=== PATIENT | female | born 1945 | race Asian ===

== ENCOUNTER → 2022-08-17 12:43 | Outpatient (BNVA) | payer MEDICAID, SELFPAY | PROVIDERS: PCP Internal Medicine; Visit Provider Internal Medicine Cardiovascular Disease | DX: I48.0 Paroxysmal atrial fibrillation (principal); I50.30 Unspecified diastolic (congestive) heart failure | CPT/HCPCS: 93005; 99202 ==

== ENCOUNTER → 2022-08-19 12:59 | Outpatient (BNVA) | payer MEDICAID, SELFPAY | PROVIDERS: PCP Internal Medicine; Visit Provider Internal Medicine Cardiovascular Disease | DX: I48.0 Paroxysmal atrial fibrillation (principal) | CPT/HCPCS: 93005 ==

== ENCOUNTER 2023-06-14 11:09 | Outpatient (AMB) | payer MEDICAID, SELFPAY ==
--- NOTE | 2023-06-14 11:19 | A.OFFVIS_ITS ---
Intake Vital Signs 06/14/23 11:20 Height 5 ft 3 in Weight 154 lb 5.177 oz BMI 27.3 BP 112/72 Blood Pressure Location Lt brachial Position Sitting Pulse 61 Intake Visit Reasons: follow-up with ekg Intake Note: Follow-up with ekg feeling good Crude Oil Treater Required: No Air Tube Releaser: Air Tube Releaser Present Accompanied by: Daughter Allergies No Known Allergies Allergy (Verified 08/17/22 13:16) Medication List - Last Reconciled 06/14/23 by Peter Paniagua MD amiodarone 100 mg PO DAILY amlodipine 5 mg PO DAILY apixaban (Eliquis) 5 mg PO BID metformin 500 mg PO BID metoprolol tartrate 50 mg PO BID olmesartan-hydrochlorothiazide 40-25 mg 1 tab PO DAILY HPI HPI Comments History of Present Illness Details Prof. Ortez comes for follow-up after a long gap. Since I last saw her she had a lot of complications related to infection and was started on heavy duty antibiotics and subsequently developed GI symptoms and JOY. After that she had traveled to [facility] and was living in [facility] for 6 months. She had some workup done there which suggested normal LV systolic function with mild LVH with biatrial enlargement and at least grade 2 diastolic dysfunction. There was concern for some regional wall motion abnormality I will suggest a coronary CTA, this is not performed as yet. She has been getting intermittent episodes of atrial fibrillation with rapid heart rate and she had symptoms of severe back p ain associated with it. She since then over the last few weeks has increase amiodarone to daily amiodarone use and since then has not had any recurrent atrial fibrillation with rapid heart rate response but she had severe back pain again and that time she thought the rhythm at changed. Do not have an EKG tracing. She has been taking all her medications. No major bleeding issues or neurologic events. Blood work done in [facility] have been within reasonable limits with normalized renal functions. She is noted to have hyperlipidemia, she has currently not on statin therapy. She denies any exertional back pain or chest pain. Has not had any heart failure symptoms of orthopnea, PND, leg edema. Does get a nocturnal dry cough. She has not had any heart failure related admissions. [facility] Medical History (Updated 06/14/23 @ 12:23 by Peter Paniagua MD) Abnormal nuclear stress test Diabetes mellitus HTN (hypertension) (HFpEF) heart failure with preserved ejection fraction Hypertensive heart disease Paroxysmal atrial fibrillation Family History Father No problems noted. Mother No problems noted. Social History Patient Tobacco Use Status: Never used Tobacco Review of Systems Const Denies chills, Denies fatigue, Denies fever(s), Denies frequent falls, Denies weakness, Denies weight gain and Denies weight loss ENT Denies dizziness Card Denies chest pain, Denies leg edema, Denies lightheadedness, Denies palpitations, Denies dyspnea, Denies dyspnea on exertion, Denies orthopnea and Denies other (loss of consciousness) Resp Denies cough, Denies dyspnea and Denies dyspnea on exertion GI Denies hematochezia and Denies change in stool character Musc Denies abnormal gait, Denies muscle weakness, Denies numbness, Denies radiating pain into limb and Denies tingling Neuro Denies Abnormal speech present, Denies abnormal gait, Denies dizziness, Denies frequent falls, Denies numbness, Denies tingling and Denies weakness Endo Denies fatigue and Denies palpitations Physical Exam Vital Signs: Last Vital Signs Pulse 61 06/14/23 11:20 BP 112/72 06/14/23 11:20 BMI result Body Mass Index 27.3 Const General: cooperative, comfortable, well developed, alert and awake Nutritional Appearance: overweight Orientation/consciousness: patient oriented x3 Limitations: no limitations HEENT Head: Yes normocephalic and Yes atraumatic Neck Neck: Yes trachea midline, Yes supple and Yes no JVD Resp Effort & Inspection: normal respiratory effort Auscultation: clear to auscultation bilaterally Cardio Jugular venous distension: no JVD Palpation: normal PMI Rate: regular rate Rhythm: regular rhythm Heart sounds: S1 normal heart sound present, S2 normal heart sound present, no click, no gallops, no murmurs and no rubs GI Auscultation: normal bowel sounds Skin General skin exam: no rashes or lesions noted Neuro General: patient oriented x3 and no focal motor deficits Speech: No Abnormal speech present Extrem General: Yes no clubbing, cyanosis or edema Psych Appearance: grossly normal Office Procedures EKG Details: EKG shows normal sinus rhythm with sinus arrhythmia [id number], Complete Assessment & Plan Assessment & Plan (1) (HFpEF) heart failure with preserved ejection fraction: Code(s): I50.30 - Unspecified diastolic (congestive) heart failure Plan: Heart failure preserved ejection fraction, clinically euvolemic and well compensated. Currently doing very well from this perspective. She understands management of heart failure very well. Advised daily weight monitoring avoidance of salt loading. Taking of loop diuretics if she has weight gain or symptoms of heart failure was discussed and she understands well. She is done very well with rhythm control approach and strongly recommend to continue amiodarone to maintain rhythm which has helped her significantly. Heart failure most likely related to hypertensive heart disease with at least grade 2 diastolic dysfunction and recurrent atrial fibrillation. Continue aggressive management of blood pressure. Advised to take all her medications regularly and maintain a blood pressure log at home. Going to start on Jardiance 10 mg daily which has shown to reduce recurrent hospitalization related to heart failure improved prognosis. Follow-up blood work in near future. She also has high likelihood of underlying obstructive coronary disease and this needs to be ruled out as this could affect her prognosis and also heart failure syndrome. Encouraged to increase activity level. Also evaluate for was obstructive sleep apnea. (2) Paroxysmal atrial fibrillation: Code(s): I48.0 - Paroxysmal atrial fibrillation Plan: Paroxysmal atrial fibrillation which has been difficult control. Most likely related hypertensive heart disease with biatrial chamber enlargement. She is done well with amiodarone therapy. She is worried about long-term amiodarone toxicity. I concur with her and we discussed about potential ways of coming off amiodarone and I think she will need ablation therapy to reduce risk of recurrent atrial fibrillation but will need an alternative antiarrhythmic at that point in time. Limited choices of antiarrhythmic drug therapy if she is significant coronary artery disease and therefore coronary CTA is very essential. Continue full oral anticoagulation, currently on Eliquis 5 mg b.i.d.. At least quarterly renal function test should be pursued. Avoidance of stimulants was discussed. Continue aggressive control blood pressure. Workup for sleep apnea needs to be pursued. (3) Abnormal nuclear stress test: Code(s): R94.39 - Abnormal result of other cardiovascular function study Plan: Abnormal stress test and likelihood of LAD territory ischemia is high. Recommend coronary CTA to further evaluate for significant coronary artery disease. Potential outcomes were discussed. If she has nonobstructive disease then continue aggressive medical management will be pursued. She should be on statin therapy. Have taken the liberty start on Lipitor 20 mg daily and follow- up lipid panel in 6 weeks time to target goal LDL less than 70 mg/dL. She is currently on full oral anticoagulation with therefore avoid low-dose aspirin therapy to reduce bleeding risk. Continue aggressive management diabetes. Will follow up in the clinic in 6 weeks time, sooner p.r.n.. Thank you for allowing me to partake in her care. Greater than 40 minutes was spent in managing his complex care Orders: Orders CT Cardiac Coronary Angio 1 Week I50.30 - Unspecified diastolic (congestive) heart failure Basic Metabolic Panel Today I50.30 - Unspecified diastolic (congestive) heart failure Magnesium Today I50.30 - Unspecified diastolic (congestive) heart failure TSH reflex Free T4 Today I50.30 - Unspecified diastolic (congestive) heart failure Liver Panel Today I50.30 - Unspecified diastolic (congestive) heart failure RT home sleep study Today I50.30 - Unspecified diastolic (congestive) heart failure, R40.0 - Somnolence B Type Natriuretic Peptide Today I50.30 - Unspecified diastolic (congestive) heart failure Complete Blood Count no Diff Today I50.30 - Unspecified diastolic (congestive) heart failure Medications: New empagliflozin (Jardiance) 10 mg PO DAILY 30 tabs 5RF I50.30 - Unspecified diastolic (congestive) heart failure atorvastatin (Lipitor) 20 mg PO DAILY 30 tabs 5RF I50.30 - Unspecified diastolic (congestive) heart failure Coding Level of Care Code Est Pt Level 5 (49525) Diagnoses (HFpEF) heart failure with preserved ejection fraction I50.30 Paroxysmal atrial fibrillation I48.0 Abnormal nuclear stress test R94.39 CPT Codes EKG - CPT: 00974-[id number], Complete ([id number])
[2023-06-14 11:20] VITALS: BP 112/72; PULSE 61; BMI 27.3
== END 2023-06-14 12:19 | disposition home or self-care (01) ==
PROVIDERS: PCP Internal Medicine; Visit Provider Internal Medicine Cardiovascular Disease
DX: I50.30 Unspecified diastolic (congestive) heart failure (principal); I48.0 Paroxysmal atrial fibrillation; R94.39 Abnormal result of other cardiovascular function study
CPT/HCPCS: 93010; 99215

== ENCOUNTER → 2023-06-14 11:09 | Outpatient (BNVA) | payer MEDICAID, SELFPAY | PROVIDERS: PCP Internal Medicine; Visit Provider Internal Medicine Cardiovascular Disease | DX: I50.30 Unspecified diastolic (congestive) heart failure (principal); I48.0 Paroxysmal atrial fibrillation; R94.39 Abnormal result of other cardiovascular function study | CPT/HCPCS: 93005; 99212 ==

== ENCOUNTER → 2023-06-26 14:14 | Outpatient (REF) | payer MEDICAID, SELFPAY | LOC: HO.SL 14:14 | PROVIDERS: PCP Internal Medicine; Visit Provider Internal Medicine Cardiovascular Disease | DX: G47.33 Obstructive sleep apnea (adult) (pediatric) (principal); R40.0 Somnolence; I50.30 Unspecified diastolic (congestive) heart failure | CPT/HCPCS: 95806 ==

== ENCOUNTER → 2023-06-26 14:21 | Outpatient (BNV) | payer MEDICAID, SELFPAY | PROVIDERS: PCP Internal Medicine; Visit Provider Psychiatry & Neurology Neurology | DX: G47.33 Obstructive sleep apnea (adult) (pediatric) (principal) | CPT/HCPCS: 95806 ==

== ENCOUNTER → 2023-07-07 08:08 | Outpatient (REF) | payer MEDICAID, SELFPAY ==
--- NOTE | 2023-07-07 08:10 | HM_ITS ---
* Total monitoring time 2 days. * Underlying rhythm is sinus with an average rate of 66/Min. * Frequent supraventricular ectopy with a burden of about 6%. * No significant pauses or AV blocks. * No patient markers or diary events. MTDD
== END ==
LOC: HO.CARD 08:08
PROVIDERS: PCP Internal Medicine; Visit Provider Internal Medicine Cardiovascular Disease
DX: I48.0 Paroxysmal atrial fibrillation (principal)
CPT/HCPCS: 93225

== ENCOUNTER → 2023-07-07 08:10 | Outpatient (BNV) | payer MEDICAID, SELFPAY | PROVIDERS: PCP Internal Medicine; Visit Provider Internal Medicine | DX: I47.10 Supraventricular tachycardia, unspecified (principal) | CPT/HCPCS: 93227 ==

== ENCOUNTER 2023-11-29 12:49 | Outpatient (AMB) | payer MEDICAID, SELFPAY ==
[2023-11-29 13:00] VITALS: BP 118/68; PULSE 52; BMI 26.5
--- NOTE | 2023-11-29 13:00 | MHC.OFFVIS ---
Vital Signs 11/29/23 13:00 Height 5 ft 4 in Weight 154 lb 5.177 oz BMI 26.5 BP 118/68 Blood Pressure Location Lt brachial Position Sitting Pulse 52 Intake Visit Reasons: per Dr. Paniagua Intake Note: Follow-up dx afib feeling good today can have heart racing at times Tracer Bullet Section Supervisor: Tracer Bullet Section Supervisor Present Accompanied by: Daughter Allergies No Known Allergies Allergy (Verified 08/17/22 13:16) Medication List - Last Reconciled 11/29/23 by Peter Paniagua MD amiodarone 100 mg PO DAILY amlodipine 5 mg PO DAILY apixaban (Eliquis) 5 mg PO BID atorvastatin 20 mg PO DAILY metformin 500 mg PO BID metoprolol tartrate 50 mg PO BID olmesartan-hydrochlorothiazide 40-25 mg 1 tab PO DAILY HPI Comments Details: Neelima comes for follow-up. Last Monday she had a brief episode of atrial fibrillation. She detected on a home monitor EKG. Subsequently Monday night she had recurrent episodes of atrial fibrillation if she felt on well backache and notice that heart was in AFib. He remained in atrial fibrillation throughout the day yesterday, 1st episode of persistent atrial fibrillation in many months. She then this morning had another EKG which showed atrial fibrillation, we increase the amiodarone yesterday after discussion with the daughter to 200 mg b.i.d. she took 2 doses since last evening and have reduced her metoprolol to 25 mg b.i.d.. She has been taking Eliquis regularly. Her blood pressures been very well controlled. As you aware she had a coronary CTA which had shown nonobstructive disease. She denies any heart failure symptoms at this point time. Denies any orthopnea, PND, leg edema. No weight gain. No lightheadedness, syncope. A blood pressure says remains 110 systolic. Over the last 20 days she has also not had CPAP use because of her cataract surgery. [facility] Medical History (Updated 11/29/23 @ 13:39 by Peter Paniagua MD) Abnormal nuclear stress test Diabetes mellitus HTN (hypertension) (HFpEF) heart failure with preserved ejection fraction Hypertensive heart disease Paroxysmal atrial fibrillation Family History Father No problems noted. Mother No problems noted. Social History Patient Tobacco Use Status: Never used Tobacco Review of Systems Const Denies chills, Denies fatigue, Denies fever(s), Denies frequent falls, Denies weakness, Denies weight gain and Denies weight loss ENT Denies dizziness Card Denies chest pain, Denies leg edema, Denies lightheadedness, Denies palpitations, Denies dyspnea, Denies dyspnea on exertion, Denies orthopnea and Denies other (loss of consciousness) Resp Denies cough, Denies dyspnea and Denies dyspnea on exertion GI Denies hematochezia and Denies change in stool character Musc Denies abnormal gait, Denies muscle weakness, Denies numbness, Denies radiating pain into limb and Denies tingling Neuro Denies Abnormal speech present, Denies abnormal gait, Denies dizziness, Denies frequent falls, Denies numbness, Denies tingling and Denies weakness Endo Denies fatigue and Denies palpitations Physical Exam Vital Signs: Last Vital Signs Pulse 52 11/29/23 13:00 BP 118/68 11/29/23 13:00 BMI result Body Mass Index 26.5 Const General: cooperative, comfortable, well developed, alert and awake Nutritional Appearance: overweight Orientation/consciousness: patient oriented x3 Limitations: no limitations HEENT Head: Yes normocephalic and Yes atraumatic Neck Neck: Yes trachea midline, Yes supple and Yes no JVD Resp Effort & Inspection: normal respiratory effort Auscultation: clear to auscultation bilaterally Cardio Jugular venous distension: no JVD Palpation: normal PMI Rate: regular rate and bradycardic Rhythm: regular rhythm Heart sounds: S1 normal heart sound present, S2 normal heart sound present, no click, no gallops, no murmurs and no rubs GI Auscultation: normal bowel sounds Skin General skin exam: no rashes or lesions noted Neuro General: patient oriented x3 and no focal motor deficits Speech: No Abnormal speech present Extrem General: Yes no clubbing, cyanosis or edema Psych Appearance: grossly normal Office Procedures EKG Details: EKG shows sinus bradycardia with PACs at 52 beats per minute with mild QT prolongation [id number], Complete Assessment & Plan Assessment & Plan (1) Paroxysmal atrial fibrillation: Code(s): I48.0 - Paroxysmal atrial fibrillation Category: Medical Plan: Paroxysmal atrial fibrillation, with recent increased burden. This is most likely due to either inappropriate amiodarone dosing iron or not using her CPAP. She has done extremely well with rhythm control approach will continue pursue rhythm control approach. For now she is coming to the office in sinus rhythm after increasing her amiodarone dose. I have suggested as she is traveling to [facility] to load herself with a small loaded to 100 mg b.i.d. for 2 weeks followed by 200 mg daily till she returns back from [facility] in 6 months. At which point time will consider further treatment options including ablation therapy. The role of ablation therapy was discussed in details again. Continue CPAP therapy. Continue aggressive blood pressure control. Continue full oral anticoagulation, currently with Eliquis. (2) (HFpEF) heart failure with preserved ejection fraction: Code(s): I50.30 - Unspecified diastolic (congestive) heart failure Category: Medical Plan: Heart failure preserved ejection fraction, clinically euvolemic and well compensated. She is currently not on any diuretic regimen. She has done well with rhythm control approach. A blood pressure is also well optimized. Advised to monitor her blood pressure regular. Daily weight monitoring avoidance of salt loading was discussed. Continue CPAP therapy. Advised to call me with any worsening symptoms. (3) CAD (coronary artery disease): Code(s): I25.10 - Atherosclerotic heart disease of [place] coronary artery without angina pectoris Category: Medical Plan: Nonobstructive CAD by coronary CTA. Encouraged to continue aggressive medical therapy. Continue statin therapy. Continue aggressive diabetes management goal hemoglobin A1c less than 7%. Continue aggressive blood pressure control as well. Currently on full oral anticoagulation Eliquis and therefore would avoid aspirin therapy. Follow up in the clinic in 6 months time, sooner p.r.n.. Will obtain echocardiogram on a returned. Thank you for allowing me to partake in his care Orders: Orders CA echo transthoracic complete 6 Months I50.30 - Unspecified diastolic (congestive) heart failure Medications: Changed From amiodarone 100 mg PO DAILY To amiodarone 200 mg PO BID From metoprolol tartrate 50 mg PO BID To metoprolol tartrate 25 mg PO BID Coding Level of Care Code Est Pt Level 4 (90008) Diagnoses Paroxysmal atrial fibrillation I48.0 (HFpEF) heart failure with preserved ejection fraction I50.30 CAD (coronary artery disease) I25.10 CPT Codes EKG - CPT: 07068-[id number], Complete ([id number])
== END 2023-11-29 13:54 | disposition home or self-care (01) ==
PROVIDERS: PCP Internal Medicine; Visit Provider Internal Medicine Cardiovascular Disease
DX: I48.0 Paroxysmal atrial fibrillation (principal); I50.30 Unspecified diastolic (congestive) heart failure; I25.10 Atherosclerotic heart disease of native coronary artery without angina pectoris
CPT/HCPCS: 93010; 99214

== ENCOUNTER → 2023-11-29 12:49 | Outpatient (BNVA) | payer MEDICAID, SELFPAY | PROVIDERS: PCP Internal Medicine; Visit Provider Internal Medicine Cardiovascular Disease | DX: I48.0 Paroxysmal atrial fibrillation (principal); I50.30 Unspecified diastolic (congestive) heart failure; I25.10 Atherosclerotic heart disease of native coronary artery without angina pectoris; R00.1 Bradycardia, unspecified | CPT/HCPCS: 93005; 99212 ==

== ENCOUNTER 2024-06-27 13:19 | Outpatient (AMB) | payer MEDICAID, SELFPAY ==
[2024-06-27 13:20] VITALS: BP 120/78; PULSE 64; BMI 26.9
--- NOTE | 2024-06-27 13:20 | MHC.OFFVIS ---
Vital Signs 06/27/24 13:20 Height 5 ft 4 in Weight 156 lb 8.451 oz BMI 26.9 BP 120/78 Blood Pressure Location Lt brachial Pulse 64 Intake Visit Reasons: 6 mth f/up Allergies No Known Allergies Allergy (Verified 08/17/22 13:16) Medication List - Last Reconciled 06/27/24 by Peter Paniagua MD amiodarone 200 mg PO ONCE amlodipine 5 mg PO DAILY apixaban (Eliquis) 5 mg PO BID metformin 500 mg PO BID metoprolol tartrate 25 mg PO BID olmesartan-hydrochlorothiazide 40-25 mg 1 tab PO DAILY rosuvastatin 20 mg PO DAILY HPI Comments Details: Neelima comes for follow-up. She has been doing extremely well. She recently returned from [place]. In the last 6 months she had only had 1 episode of 10 minutes of atrial fibrillation. Overall she is doing well. She was using a CPAP regularly. She says she can not sleep without it. She uses for 6-7 hours a night. She has not had any heart failure symptoms. Denies any orthopnea, PND, leg edema which has improved significantly. Currently not on diuretic regimen. Blood pressure is very well controlled at systolic 110-120 range. No bleeding issues or neurologic events. Complains of a dry cough ever since she had a pneumonia while in [place]. She has not had any wheezing or productive phlegm. Denies exertional chest pain. [facility] Medical History Abnormal nuclear stress test Diabetes mellitus HTN (hypertension) (HFpEF) heart failure with preserved ejection fraction Hypertensive heart disease Paroxysmal atrial fibrillation Family History Father No problems noted. Mother No problems noted. Social History Patient Tobacco Use Status: Never used Tobacco Review of Systems Const Denies chills, Denies fatigue, Denies fever(s), Denies frequent falls, Denies weakness, Denies weight gain and Denies weight loss ENT Denies dizziness Card Denies chest pain, Denies leg edema, Denies lightheadedness, Denies palpitations, Denies dyspnea, Denies dyspnea on exertion, Denies orthopnea and Denies other (loss of consciousness) Resp Denies cough, Denies dyspnea and Denies dyspnea on exertion GI Denies hematochezia and Denies change in stool character Musc Denies abnormal gait, Denies muscle weakness, Denies numbness, Denies radiating pain into limb and Denies tingling Neuro Denies Abnormal speech present, Denies abnormal gait, Denies dizziness, Denies frequent falls, Denies numbness, Denies tingling and Denies weakness Endo Denies fatigue and Denies palpitations Physical Exam Vital Signs: Last Vital Signs Pulse 64 06/27/24 13:20 BP 120/78 06/27/24 13:20 BMI result Body Mass Index 26.9 Const General: cooperative, comfortable, well developed, alert and awake Nutritional Appearance: overweight Orientation/consciousness: patient oriented x3 Limitations: no limitations HEENT Head: Yes normocephalic and Yes atraumatic Neck Neck: Yes trachea midline, Yes supple and Yes no JVD Resp Effort & Inspection: normal respiratory effort Auscultation: clear to auscultation bilaterally Cardio Jugular venous distension: no JVD Palpation: normal PMI Rate: regular rate and bradycardic Rhythm: regular rhythm Heart sounds: S1 normal heart sound present, S2 normal heart sound present, no click, no gallops, no murmurs and no rubs GI Auscultation: normal bowel sounds Skin General skin exam: no rashes or lesions noted Neuro General: patient oriented x3 and no focal motor deficits Speech: No Abnormal speech present Extrem General: Yes no clubbing, cyanosis or edema Psych Appearance: grossly normal Office Procedures EKG Details: EKG shows normal sinus rhythm with nonspecific ST T wave changes with voltage criteria for LVH [id number], Complete Assessment & Plan Assessment & Plan (1) Paroxysmal atrial fibrillation: Code(s): I48.0 - Paroxysmal atrial fibrillation Category: Medical Plan: Paroxysmal atrial fibrillation which is currently suppressed on amiodarone therapy. She is doing very well with rhythm control approach. Has significantly improved his symptoms and heart failure syndrome. See below. Continue rhythm control approach. We discussed about long-term use of amiodarone versus pursuing ablation and eventually an alternative antiarrhythmic drug therapy to avoid long-term toxicity. Given her persistent cough will suggest a noncontrast CT scan of the chest to evaluate for amiodarone related lung injury. Continue aggressive blood pressure control which is currently well optimized. Continue CPAP therapy. Continue full oral anticoagulation, currently on Eliquis 5 mg b.i.d.. Her hemoglobin has improved on iron therapy and will continue the same. Continue monitor hemoglobin every 6 months. (2) CAD (coronary artery disease): Code(s): I25.10 - Atherosclerotic heart disease of [place] coronary artery without angina pectoris Category: Medical Plan: Nonobstructive CAD by CTA. Continue aggressive medical therapy. Blood pressure is currently well optimized. Does not need aspirin therapy as she is already on full-dose oral anticoagulation therapy. Continue statin therapy with target goal LDL less than 70 mg/dL. (3) (HFpEF) heart failure with preserved ejection fraction: Code(s): I50.30 - Unspecified diastolic (congestive) heart failure Category: Medical Plan: Heart failure syndrome has significantly improved, currently off loop diuretic therapy. She has done very well with rhythm control approach and therapy with CPAP. Continue the same. Continue rhythm control approach as above. Continue CPAP therapy. Signs and symptoms of heart failure were discussed and she understands them well. Continue aggressive blood pressure control which is currently well optimized. Low-salt diet was discussed. Will follow up in the clinic in 6 months time, sooner p.r.n.. Thank you for allowing me to partake in her care Orders: Orders CT chest wo con - High Res Today I48.0 - Paroxysmal atrial fibrillation Coding Level of Care Code Est Pt Level 4 (63730) Complex EM visit Add On G2211 Diagnoses Paroxysmal atrial fibrillation I48.0 CAD (coronary artery disease) I25.10 (HFpEF) heart failure with preserved ejection fraction I50.30 CPT Codes EKG - CPT: 79671-[id number], Complete ([id number])
--- OUTSIDE RECORDS SUMMARY | 2024-06-27 15:45 | XMS_ITS | Clinical Summary ---
Author Organization [facility] Address [address] [facility] [address] [place] [address] Phone Care Team Providers Care Lacquer Sprayer Name Role Phone Katherine Maguire MD Primary Care Provider [phone] Allergies No known active allergies Medications apixaban (ELIQUIS) 5 MG tablet Take 5 mg by mouth in the morning and 5 mg in the evening. Active metFORMIN (GLUCOPHAGE) 500 MG tablet Take 500 mg by mouth in the morning and 500 mg in the evening. Take with meals. Active metoprolol tartrate (LOPRESSOR) 50 MG tablet Take 50 mg by mouth in the morning and 50 mg in the evening. Active furosemide (LASIX) 40 MG tablet Take 40 mg by mouth if needed Active amiodarone (PACERONE) 100 MG tablet Take 1 tablet (100 mg total) by mouth 3 (three) times a week 3 Active Ferrous Bisglycinate Chelate 28 MG capsule Take 1 capsule by mouth in the morning and 1 capsule at noon and 1 capsule in the evening. 90 capsule 11 4 Active olmesartan-hydroC HLOROthiazide (BENICAR HCT) 20-12.5 MG per tablet TAKE 1 TABLET BY MOUTH 1 TIME EACH DAY. 90 tablet 3 4 Active amLODIPine (NORVASC) 5 MG tablet TAKE 1 TABLET BY MOUTH EVERY DAY 90 tablet 3 4 Active Active Problems Problem Noted Date Diagnosed Date Iron deficiency anemia, not otherwise specified 07/27/2023 Chronic kidney disease stage 1 10/21/2022 Hypertensive chronic kidney disease 10/21/2022 Vitamin B12 deficiency anemia 10/21/2022 Type 2 diabetes mellitus without complication Congestive heart failure 04/25/2022 Atrial fibrillation 04/25/2022 Resolved Problems Problem Noted Date Diagnosed Date Resolved Date Chronic kidney disease, stage 2 (mild) 04/27/2022 10/21/2022 Type 1 diabetes mellitus without complication 04/25/1904/25/2022 Essential (primary) hypertension 04/25/2022 04/26/2022 Family History Medical History Relation Comments Diabetes Father Hypertension Father Diabetes Mother Hypertension Mother Relation Status Comments Father Mother Social History Tobacco Use Types Packs/Day Years Used Date Smoking Tobacco: Never Smokeless Tobacco: Never Tobacco Cessation:Counseling Given: No Alcohol Use Standard Drinks/Week Comments Never 0 (1 standard drink = 0.6 oz pur e alcohol) Comments Unknown Sex and Gender Information Value Date Recorded Sex Assigned at Not on file Legal Sex Female 9:10 AM EST Gender Identity Not on file Sexual Orientation Not on file Last Filed Vital Signs Vital Sign Reading Time Taken Comments Blood Pressure 128/64 07/27/2023 10:00 AM EDT Pulse 91 07/27/2023 10:00 AM EDT Temperature - - Respiratory Rate - - Oxygen Saturation - - Inhaled Oxygen Concentration - - Weight 72 kg (158 lb 12.8 oz) 07/27/2023 10:00 A M EDT Height - - Body Mass Index - - Plan of Treatment Health Maintenance Due Date Last Done Comments Pneumococcal Vaccine: 50+ Ye ars (1 of 2 - PCV) 12/16/1964 Diabetes: Ophthalmology Exam 04/27/2022 Diabetes: Pedal Pulse Checked 04/27/2022 Diabetes: Sensory Foot Exam 04/27/2022 Diabetes: Visual Foot Exam 04/27/2022 Diabetes: Hemoglobin A1C 01/22/2023 10/22/2022 Influenza Vaccine (Season Ended) 2024 Hepatitis B Vaccine Aged Out No longe r eligible based on patient's age to complete this topic Procedures Procedure Name Priority Date/Time Associated Diagnosis Comments HEMOGLOBIN A1C Routine 10/22/2022 8:22 AM EDT Hypertensive chronic kidney disease Chronic kidney disease stage 1 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 DIAGNOSTIC USE: ??The [place] Diabetes Association (ADA) and the World Health Organization (WHO) recommend the use of HbA1c to diagnose diabetes using a threshold of 6.5%. Patients who have an HbA1c between 5.7% and 6.4% are considered at increased risk for developing diabetes in the future. CAUTION: Falsely low HbA1c results may be observed in patients with hemolytic anemia, homozygous forms of abnormal hemoglobin (e.g. SS, CC, SC), , recent blood loss or hemoglobin F greater than 7%. Fructosamine may be used as an alternate test in these cases. REFERENCE: ADA: Standards of Medical Care in Diabetes 2020, The Journal of Clinical and Applied Research and Education Volume 43, Supplement 1 Testing performed or reported by [facility], a Service of [facility], [address] [place] [address] Jame Connor MD, Sales Support Associate [facility]# [id number] Blood (Blood, Venous) 10/22/2022 8:22 AM EDT 10/22/2022 8:23 AM EDT us Checo Roldan MD LAB BLOOD ORDERABLES Final Resu lt [facility] from Last 3 Months or Most Recently Relevant to Health Maintenance [place] Care Teams Lacquer Sprayer Relationship Specialty Start Date End Date Katherine Maguire MD [address], [place] PCP - General Internal Medicine 04/26/22
--- OUTSIDE RECORDS SUMMARY | 2024-06-27 15:45 | XMS_ITS | Encounter Summary ---
Author Organization [facility] Address [address] [place] [address] Phone Care Team Providers Care Immersion Metalcleaner Name Role Phone Katherine Maguire MD Primary Care Provider [phone] Encounter Details Date Type Department Care Team (Late st Contact Info) Description 05/11/2022 Documentation Only [facility] [address] [place] [id number] [place], [place] Social History Tobacco Use Types Packs/Day Years Used Date Smoking Tobacco: Never Smokeless Tobacco: Never Alcohol Use Standard Drinks/Week Comments Never 0 (1 standard drink = 0.6 oz pur e alcohol) Comments Unknown Sex and Gender Information Value Date Recorded Sex Assigned at Not on file Legal Sex Female 9:10 AM EST Gender Identity Not on file Sexual Orientation Not on file documented as of this encounter Plan of Treatment Not on file documented as of this encounter Visit Diagnoses Not on filedocumented in this encounter Care Teams Immersion Metalcleaner Relationship Specialty Start Date End Date Katherine Maguire MD [address] [facility] [place], [place] PCP - General Internal Medicine 04/26/22 documented as of this encounter
== END 2024-06-27 14:00 | disposition home or self-care (01) ==
LOC: HO.HCS 13:19
PROVIDERS: PCP Internal Medicine; Visit Provider Internal Medicine Cardiovascular Disease
DX: I48.0 Paroxysmal atrial fibrillation (principal); I25.10 Atherosclerotic heart disease of native coronary artery without angina pectoris; I50.30 Unspecified diastolic (congestive) heart failure
CPT/HCPCS: 93010; 99214

== ENCOUNTER → 2024-06-27 13:19 | Outpatient (BNVA) | payer MEDICAID, SELFPAY | PROVIDERS: PCP Internal Medicine; Visit Provider Internal Medicine Cardiovascular Disease | DX: I48.0 Paroxysmal atrial fibrillation (principal); I25.10 Atherosclerotic heart disease of native coronary artery without angina pectoris; I50.30 Unspecified diastolic (congestive) heart failure; R94.31 Abnormal electrocardiogram [ECG] [EKG] | CPT/HCPCS: 93005; 99212 ==

== ENCOUNTER 2024-07-05 12:40 | Outpatient (AMB) | payer MEDICAID, SELFPAY ==
--- OUTSIDE RECORDS SUMMARY | 2024-07-05 12:42 | XMS_ITS | Encounter Summary ---
Author Organization [facility] Address [address] [place] [address] Phone Care Team Providers Care Import/Export Freight Forwarder Name Role Phone Katherine Maguire MD Primary Care Provider [phone] Encounter Details Date Type Department Care Team (Late st Contact Info) Description 05/11/2022 Documentation Only [facility] [address] [place] [phone] [place], [place] Social History Tobacco Use Types Packs/Day [...] on filedocumented in this encounter Care Teams Import/Export Freight Forwarder Relationship Specialty Start Date End Date Katherine Maguire MD [address] [facility] [place], [place] PCP - General Internal Medicine 04/26/22 documented as of this encounter
--- OUTSIDE RECORDS SUMMARY | 2024-07-05 12:42 | XMS_ITS | Clinical Summary ---
Author Organization [facility] Address [address] [facility] [address] [place] [address] Phone Care Team Providers Care Flange Turner Name Role Phone Katherine Maguire MD Primary Care Provider [phone] Allergies No known active allergies Medications apixaban [...] AM EDT) Hemoglobin A1C 6.8(H) (4.0-5.6) % [facility] Comment: MONITORING: In known diabetic patients, hemoglobin A1c targets should be discussed with health care provider. DIAGNOSTIC USE: ??The [place] Diabetes Association (ADA) and the World Health [...] Supplement 1 Testing performed or reported by [facility], a Service of [facility], [address] [place] [address] Jame Connor MD, Child Care Attendant School [facility]# [id number] Blood (Blood, Venous) 10/22/2022 8:22 AM EDT 10/22/2022 8:23 AM EDT us Checo Roldan MD LAB BLOOD ORDERABLES Final Resu lt [facility] from Last 3 Months or Most Recently Relevant to Health Maintenance [place] Care Teams Flange Turner Relationship Specialty Start Date End Date Katherine Maguire MD [address] [place], [place] PCP - General Internal Medicine 04/26/22
--- NOTE | 2024-07-05 13:04 | A.OFFVIS_ITS ---
Intake Visit Reasons: TELE PURCHASING ANALYST Sleep Allergies No Known Allergies Allergy (Verified 08/17/22 13:16) HPI Comments Details: 78y/o female with ATrial fibrillation and obstructive sleep apnea calls for evaluation and further management she had Home Sleep Test on 07/20 and was diagnosed with severe sleep apnea. AHI 23 and oxygen roxana was 74%. Due to various medical issues she was not able to start on CPAP until Oct 2023 on AutoPAP 5-20. when she uses CPAP she felt she slept better and her atrial fib was well controlled. However she had cataract surgery and was not able to use for 3 weeks , she travelled to [facility] for personal reasons. she was using it until there was power failure and she was not able to use it consistently . she also had Pneumonia , bronchitis - she was not able to use CPAP for few weeks . she is back in [facility] now and wants to restart . she feels better when she uses her CPAP and it also helped with her atrial fibrillation as she did not have any episodes since she started CPAP. she is also not getting her [facility] home care . she is currently on treatment for bronchitis and has not used for 1 week . [facility] Medical History Obstructive sleep apnea hypopnea, severe Abnormal nuclear stress test Diabetes mellitus HTN (hypertension) (HFpEF) heart failure with preserved ejection fraction Hypertensive heart disease Paroxysmal atrial fibrillation Family History Father No problems noted. Mother No problems noted. Social History Patient Tobacco Use Status: Never used Tobacco Physical Exam Const General: cooperative Orientation/consciousness: patient oriented x3 Neuro Other: Normal speech Normal mood General: patient oriented x3 Telehealth Telehealth Telehealth Platform: Telephone Location of provider rendering services: practice address Location of patient: address on file Patient Identification confirmed using: Name, : Yes Telehealth method: voice only Patient verbally consented to treatment: Yes Patient verbally consented to billing insurance company: Yes Patient informed of any privacy concerns related to visit: Yes Minutes spent on Phone/Video with Pt.: 22 Assessment & Plan Assessment & Plan (1) Obstructive sleep apnea hypopnea, severe: Code(s): G47.33 - Obstructive sleep apnea (adult) (pediatric) Category: Medical Plan Continue AutoPAP 5-20 cm of water compliance stressed Patient has a good response to CPAP with improvement in her night time sleep, daytime functioning and her good control of her ATRIAL fibrillation Patient understands that compliance with CPAP is important for management of her condition. I will send a new pres for supplies as she has not received any supplies since starting. Coding Level of Care Code Tele New Pt Level 4 (82213) Diagnoses Obstructive sleep apnea hypopnea, severe G47.33
== END 2024-07-05 14:59 | disposition home or self-care (01) ==
LOC: HO.HSMS 12:40
PROVIDERS: PCP Internal Medicine; Visit Provider Psychiatry & Neurology Neurology
DX: G47.33 Obstructive sleep apnea (adult) (pediatric) (principal)
CPT/HCPCS: 99214

== ENCOUNTER → 2024-07-05 12:40 | Outpatient (BNVA) | payer MEDICAID, SELFPAY | PROVIDERS: PCP Internal Medicine; Visit Provider Psychiatry & Neurology Neurology ==